=== PATIENT | female | born 1960 | race Caucasian/White ===

== ENCOUNTER 2016-12-12 18:03 | Emergency (ER) | payer OTHER ==
[~2016-12-12] VITALS: Ht 175.3 cm; Wt 90.7 kg
[~2016-12-12 18:03] MED LIST: ACYC800T PO; CARI350T PO; CEPH-570 PO; DIAZ10TA PO; FOLI1TAB16 PO; HYDR-548 PO; SULF1TAB48 PO
[2016-12-12 18:45] LABS: BASOPHILS # (AUTO) 0.1 K/uL (0.0-8.0); BASOPHILS % (AUTO) 0.7 % (0.0-2.0); EOSINOPHILS # (AUTO) 0.1 K/uL (0.0-0.7); EOSINOPHILS % (AUTO) 1.4 % (0.0-7.0); HEMATOCRIT 40.8 % (37-47); HEMOGLOBIN 13.3 G/DL (12.0-16.0); LYMPHOCYTES # (AUTO) 2.6 K/UL (0.8-4.8); LYMPHOCYTES % (AUTO) 27.1 % (20.5-51.5); MEAN CORPUSCULAR HGB CONC 33 g/dL (32.0-37.0); MONOCYTES # (AUTO) 0.4 K/UL (0.1-1.30); MONOCYTES % (AUTO) 4.3 % (0.0-11.0); NEUTROPHILS # (AUTO) 6.3 K/UL (1.8-8.9); NEUTROPHILS % (AUTO) 66.5 % (38.5-71.5); PLATELET COUNT (AUTO) 346 K/UL (150-450); RED BLOOD CELL COUNT(AUTO) 4.75 MIL/UL (4.2-5.4); WHITE BLOOD COUNT (AUTO) 9.5 K/UL (4.0-11.2)
[2016-12-12 18:49] LABS: CREATININE 1.2 mg/dL (0.6-1.3); POTASSIUM 3.6 mmol/L (3.5-5.1)
[2016-12-12 19:05] LABS: BILIRUBIN,DIRECT 0.1 mg/dL (0.0-0.2); BILIRUBIN,TOTAL 0.2 mg/dL (0.2-1.0); TOTAL PROTEIN, SERUM 7.2 g/dL (6.4-8.2)
--- NOTE | 2016-12-12 19:13 | NUR ---
PT WAS EVALUATED BY DR PAGAN . PT IS IN ROOM #1A.
--- NOTE | 2016-12-12 19:20 | NUR ---
Received report from JUSTINE Fox. Assumed care of pt at this time. Pt resting in position of comfort for self. No complaints at this time. Pt NSR on monitor. Resp even and unlabored. Pt refusing IV at this time. Awaiting lab results.
--- NOTE | 2016-12-12 20:14 | NUR ---
Pt stable for discharge per MD. Pt given ACI. Pt verbalized understanding of dc instructions. Pt ambulated out of er with steady gait.
[2016-12-12 20:15] VITALS: BP 114/65
== END 2016-12-12 20:15 | disposition home or self-care (01) ==
LOC: ER 18:05
DX: R07.89 Other chest pain (principal); F17.200 Nicotine dependence, unspecified, uncomplicated; Z90.710 Acquired absence of both cervix and uterus
CPT/HCPCS: 36415; 71010; 80048; 80076; 83880; 84484; 84703; 85025; 85379; 85730; 93005; 99285; A4663; 70030-TC

== ENCOUNTER 2017-03-02 11:11 | Emergency (ER) | payer OTHER ==
[~2017-03-02] VITALS: Ht 172.7 cm; Wt 95.3 kg
[~2017-03-02 11:11] MED LIST changes: -ACYC800T PO; -CEPH-570 PO; -SULF1TAB48 PO
--- NOTE | 2017-03-02 11:46 | NUR ---
DR PAGAN AT THE BEDSIDE FOR EVAL AND EXAM.
[2017-03-02 12:02] LABS: BASOPHILS # (AUTO) 0.1 K/uL (0.0-8.0); BASOPHILS % (AUTO) 0.7 % (0.0-2.0); EOSINOPHILS # (AUTO) 0.2 K/uL (0.0-0.7); EOSINOPHILS % (AUTO) 2.6 % (0.0-7.0); HEMATOCRIT 41.6 % (37-47); HEMOGLOBIN 13.4 G/DL (12.0-16.0); LYMPHOCYTES # (AUTO) 2.2 K/UL (0.8-4.8); LYMPHOCYTES % (AUTO) 27.9 % (20.5-51.5); MEAN CORPUSCULAR HEMOGLOBIN 27.6 UUG (27.0-31.0); MEAN CORPUSCULAR HGB CONC 32 g/dL (32.0-37.0); MEAN CORPUSCULAR VOLUME 85.5 FL (81.0-99.0); MONOCYTES # (AUTO) 0.5 K/UL (0.1-1.30); MONOCYTES % (AUTO) 5.8 % (0.0-11.0); NEUTROPHILS # (AUTO) 4.8 K/UL (1.8-8.9); PLATELET COUNT (AUTO) 347 K/UL (150-450); RED BLOOD CELL COUNT(AUTO) 4.87 MIL/UL (4.2-5.4); WHITE BLOOD COUNT (AUTO) 7.9 K/UL (4.0-11.2)
[2017-03-02 12:16] LABS: CARBON DIOXIDE 27 mmol/L (21-32); CHLORIDE 105 mmol/L (98-107); CREATININE 0.8 mg/dL (0.6-1.3); GLUCOSE 120 mg/dL (74-106); POTASSIUM 4.5 mmol/L (3.5-5.1); UREA NITROGEN, BLOOD 22 mg/dL (7-18)
[2017-03-02 12:28] LABS: ALANINE AMINOTRANSFERASE 19 U/L (14-59); ALKALINE PHOSPHATASE 90 U/L (50-136); ASPARTATE AMINOTRANSFERASE 15 U/L (15-37); BILIRUBIN,DIRECT < 0.1 mg/dL (0.0-0.2); BILIRUBIN,TOTAL 0.2 mg/dL (0.2-1.0); TOTAL PROTEIN, SERUM 7.4 g/dL (6.4-8.2)
--- NOTE | 2017-03-02 13:12 | NUR ---
Patient discharged to home in stable conditon. Written and verbal after care instructions given. Patient verbalizes understanding of instructions. PT LEFT ER W/ STEADY GAIT.
[2017-03-02 13:14] VITALS: BP 112/80
[2017-03-02] MEDS ORDERED: ACETAMINOPHEN 325 MG TABLET PO ONE (13:15)
[2017-03-02] MEDS ORDERED: ACETAMINOPHEN ES 500 MG TABLET ONE (13:23)
== END 2017-03-02 13:15 | disposition home or self-care (01) ==
LOC: ER 11:11
DX: M54.12 Radiculopathy, cervical region (principal); F17.200 Nicotine dependence, unspecified, uncomplicated; Z90.710 Acquired absence of both cervix and uterus; M54.5 Low back pain
CPT/HCPCS: 36415; 70030-TC; 71010; 72125; 85025; 85730; 93005; A4663